=== PATIENT | female | born 1940 | race Caucasian/White ===

== ENCOUNTER → 2022-06-09 | Outpatient (REF) | payer MEDICARE | LOC: M LAB REF 16:00 | PROVIDERS: ATTEND Internal Medicine | DX: N39.0 Urinary tract infection, site not specified (principal) ==

== ENCOUNTER → 2022-06-24 | Outpatient (CLI) | payer MEDICARE ==
[~2022-06-24] MED LIST: GASTROGRAFIN SOLUTION 30ML As Ordered ONE; ISOVUE-370 76% 100ML VIAL As Ordered ONE
== END ==
LOC: M RAD 11:42
PROVIDERS: ATTEND Internal Medicine
DX: R10.13 Epigastric pain (principal); R14.0 Abdominal distension (gaseous); K76.89 Other specified diseases of liver
CPT/HCPCS: 74176; Q9963

== ENCOUNTER → 2023-01-11 | Outpatient (REF) | payer MEDICARE | LOC: M LAB REF 17:39 | PROVIDERS: ATTEND Internal Medicine | DX: L03.90 Cellulitis, unspecified (principal) ==

== ENCOUNTER → 2023-01-11 | Outpatient (CLI) | payer MEDICARE | LOC: M RAD 12:53 | PROVIDERS: ATTEND Internal Medicine | DX: M79.604 Pain in right leg (principal); R22.41 Localized swelling, mass and lump, right lower limb ==

== ENCOUNTER 2023-10-06 07:33 | Day surgery (SDC) | payer MEDICARE ==
[~2023-10-06] VITALS: Ht 165.1 cm; Wt 58.6 kg
[~2023-10-06 07:33] MED LIST changes: +ADVA230A INH; +AMLO1TAB24 PO; +ASPI81TA26 PO; +ATROPINE SULFATE 1% OPHTH SOLN 2ML BTL OD SCH; +CLOP75TA2 PO; -GASTROGRAFIN SOLUTION 30ML As Ordered ONE; -ISOVUE-370 76% 100ML VIAL As Ordered ONE; +LIDOCAINE 3.5 % 1ML OPHTH TOPICAL GEL OU ONE; +MIDAZOLAM INJ 2MG/2ML VIAL As Ordered ONE; +OFLOXACIN 0.3 % (OCUFLOX) OPTH SOL 5ML OD ONE; +PHENYLEPHRINE 10% OPHTH SOL 5ML OD PRN; +PHENYLEPHRINE 2.5% OPHTH SOL 2ML OD SCH; +PRES10CA2 PO; +TROPICAMIDE 1% OPHTH SOLN 15ML OD SCH; +fentaNYL 100 MCG/2 ML INJECTION As Ordered ONE
[2023-10-06] MEDS: LIDOCAINE 1% SDV 5ML VIAL As Ordered ONE (08:41)
[2023-10-06] MEDS: BSS IRRIG/VANCO(10MG)/TOBRA(5MG)/EPINEPH(1:1000-0.5CC)500ML BAG-ORONLY As Ordered ONE (08:41)
[2023-10-06] MEDS: CEFUROXIME 1MG/0.1ML INTRACAMERAL INJ As Ordered ONE (08:44)
[2023-10-06 08:51] VITALS: BP 121/60; TEMP 97.7; O2SAT 96
== END 2023-10-06 09:30 | disposition home or self-care (01) ==
LOC: M SDC 07:33
PROVIDERS: ATTEND Ophthalmology
DX: H25.11 Age-related nuclear cataract, right eye (principal); I10 Essential (primary) hypertension; I25.10 Atherosclerotic heart disease of native coronary artery without angina pectoris; Z98.61 Coronary angioplasty status; Z79.02 Long term (current) use of antithrombotics/antiplatelets; E78.5 Hyperlipidemia, unspecified; K21.9 Gastro-esophageal reflux disease without esophagitis; F31.9 Bipolar disorder, unspecified; F17.218 Nicotine dependence, cigarettes, with other nicotine-induced disorders; Z79.51 Long term (current) use of inhaled steroids
CPT/HCPCS: 66984; J0697; J2250; J3010; V2632